=== PATIENT | male | born 2000 | race Caucasian/White ===

== ENCOUNTER 2020-08-29 17:42 | Observation (INO) | payer SELFPAY ==
[~2020-08-29 17:42] MED LIST: Dexamethasone 20 MG/5 ML VIAL ONE; Glycopyrrolate 0.2 MG/ML 5 ML SYRINGE ONE; Lidocaine 1% PF 5 ML VIAL ONE; Ondansetron PF 4 MG/2 ML Vial ONE; PHENYLEPHRINE-NS 100 MCG/ML 10 ML SYRINGE ONE; PROPOFOL 200 MG/20 ML VIAL ONE; Rocuronium Bromide 10 MG/ML (10ML VIAL) ONE
[2020-08-29] MEDS ORDERED: Boostrix 0.5 ML (Tdap) VIAL ONE (17:49)
[2020-08-29] MEDS ORDERED: Fentanyl 100 MCG/2 ML VIAL ONE ×3 (17:51→20:00)
[2020-08-29 18:19] LABS: #Basophils 0.1 thou/uL (0.0-0.2); #Eosinphils 0.1 thou/uL (0.0-0.7); #Monocytes 1.1 thou/uL (0.11-0.59); #Neutrophils 10.6 thou/uL (1.40-6.50); %Basophils 0.5 % (0.0-1.0); %Eosinophils 0.5 % (0.0-10.0); %Lymphocytes 14.3 % (21.0-51.0); %Monocytes 7.9 % (0.0-10.0); %Neutrophils 76.9 % (42.0-75.0); Hemoglobin 15.2 g/dL (14.0-18.0); Mean Corpuscular HGB CONC 34.1 g/dL (32.0-36.0); Mean Corpuscular Hemoglobin 30.5 pg (27.0-31.0); Mean Corpuscular Volume 89.4 fL (78.0-98.0); Platelet Count 217 thou/uL (130-400); RBC Distribution Width 11.5 % (11.5-14.5); Red Blood Cell (RBC) Count 4.98 mill/uL (4.70-6.10); White Blood Cell (WBC) Count 13.8 thou/uL (4.8-10.8)
[2020-08-29 18:25] LABS: INR-International Normal Ratio 1.1; PTT 25.3 sec (22.9-36.1); Prothrombin Time 14.2 sec (12.0-14.7)
--- NOTE | 2020-08-29 18:26 | RAD ---
2 views left wrist: 08/29/2020 COMPARISON: None HISTORY: Laceration, trauma, pain FINDINGS: No fracture or dislocation. No radiopaque foreign body or subcutaneous gas. IMPRESSION: No acute findings.
[2020-08-29 18:35] LABS: ALT (SGPT) 17 U/L (8-55); AST (SGOT) 20 U/L (5-34); Albumin 3.8 g/dL (3.5-5.0); Alkaline Phosphatase 126 U/L (40-110); Anion Gap 14 mmol/L (10-20); BUN (Urea Nitrogen) 12 mg/dL (8.9-20.6); Bilirubin, Total 0.5 mg/dL (0.2-1.2); Calc. Creatinine Clearance 0 mL/min (70-130); Calcium 8.4 mg/dL (7.8-10.44); Carbon Dioxide 21 mmol/L (22-29); Chloride 107 mmol/L (98-107); Globulin 2.8 g/dL (2.4-3.5); Glucose 103 mg/dL (70-105); Potassium 3.6 mmol/L (3.5-5.1); Protein, Total 6.6 g/dL (6.0-8.3); Sodium 138 mmol/L (136-145)
[2020-08-29] MEDS ORDERED: Lidocaine 2% PF 5 ML VIAL ONE (19:27)
[2020-08-29] MEDS ORDERED: Bacitracin Zinc Ointment 30 gm TUBE ONE (19:27)
[2020-08-29] MEDS ORDERED: Hetastarch 6% 500 ML 500 ML ONE (19:27)
[2020-08-29] MEDS ORDERED: Betamet Acet/Betamet Na Ph 30 MG/5 ML VIAL ONE (19:27)
[2020-08-29] MEDS ORDERED: Bupivacaine PF 0.5% 30 ML VIAL ONE (19:27)
[2020-08-29] MEDS ORDERED: Heparin 25,000 units/D5W 500 ML ONE (19:28)
[2020-08-29] MEDS ORDERED: Sodium Chloride 0.9% 30 ML ONE (19:32)
[2020-08-29] MEDS ORDERED: Milk Of Magnesia 30 ML UDCUP PO PRN (19:57)
[2020-08-29] MEDS ORDERED: Morphine 4 MG/ML VIAL SLOW IVP PRN (19:57)
[2020-08-29] MEDS ORDERED: traMADol HCl 50 MG TAB PO PRN (19:57)
[2020-08-29] MEDS ORDERED: Promethazine HCl 25 MG/ML VIAL IM PRN ×2 (19:57→23:13)
[2020-08-29] MEDS ORDERED: Acetaminophen 325 MG TAB PO PRN (19:57)
[2020-08-29] MEDS ORDERED: Ondansetron PF 4 MG/2 ML Vial SLOW IVP PRN (19:57)
[2020-08-29] MEDS ORDERED: Meperidine HCl/PF 25 MG/ML VIAL IM PRN (20:00)
[2020-08-29] MEDS ORDERED: TETANUS AND DIPHTHERIA TOX/PF 0.5 ML DISP.SYRIN IM SCH (20:00)
[2020-08-29] MEDS ORDERED: Midazolam HCl 2 mg/2 ml Vial ONE ×2 (20:00→22:57)
[2020-08-29] MEDS ORDERED: HYDROmorphone 0.5 MG/0.5 ML SYRINGE ONE (20:01)
[2020-08-29] MEDS ORDERED: Lidocaine 2% Jelly 5 ML TUBE ONE (20:01)
[2020-08-29 20:33] LABS: SARS-CoV-2 NAA Rapid Test Not Detected (NotDetected)
[2020-08-29] MEDS ORDERED: Vancomycin 1 GM in Premix Bag 1 BAG IVPB SCH (21:00)
[2020-08-29] MEDS ORDERED: SUGAMMADEX SODIUM 200 MG/2 ML VIAL ONE (22:59)
[2020-08-29] MEDS ORDERED: Promethazine HCl 25 MG/ML VIAL SLOW IVP PRN (23:13)
[2020-08-29] MEDS ORDERED: Meperidine HCl/PF 25 MG/ML VIAL SLOW IVP PRN ×2 (23:13)
[2020-08-29] MEDS ORDERED: Ketorolac Tromethamine 30 MG/ML VIAL IVP PRN (23:13)
[2020-08-29] MEDS ORDERED: Ondansetron HCl/PF 4 MG/2 ML Vial IVP PRN (23:13)
[2020-08-29] MEDS ORDERED: HYDROmorphone 2 MG/ML VIAL SLOW IVP PRN (23:13)
[2020-08-30 00:55] VITALS: BMI 32.8
[2020-08-30] MEDS: HYDROcodone/Acetaminophen 5/325 mg Tablet PO PRN ×2 (03:43→09:02)
[2020-08-30] MEDS: Vancomycin 1.5 GRAM/300 ML BAG 1.5 GM in Premix Bag 1 BAG IVPB SCH ×2 (04:49→13:57)
[2020-08-30] MEDS ORDERED: Hetastarch 6% 500 ML 500 ML IVPB SCH (05:00)
[2020-08-30] MEDS: Aspirin 81 mg Enteric Coated Tablet PO SCH ×2 (05:03→09:00)
[2020-08-30 06:28] LABS: INR-International Normal Ratio 1.1; Prothrombin Time 14.8 sec (12.0-14.7)
[2020-08-30] MEDS ORDERED: Sodium Chloride 0.9% 10 ML ONE (13:37)
--- NOTE | 2020-08-30 15:46 | OP ---
DATE OF PROCEDURE: 08/29/2020 PREOPERATIVE DIAGNOSES: 1. Left ulnar artery laceration with nerve neuropraxia, distal forearm just before it enters the Guyon canal. 2. Left distal forearm 5 cm wound; longitudinal, oblique. FINDINGS: 1. The ulnar artery had a 1 cm long laceration that was oblique in nature at almost a 45-degree angle to the horizontal, required complex repair techniques. 2. The ulnar nerve showed no sheath injury and it was intact grossly as a tube consistent with his normal two-point discrimination history. PROCEDURES PERFORMED: 1. Debridement of wound. Debridement techniques as follows: Tenotomy scissors, [place] blade, Adson's, and 3 L Pulsavac irrigation with depth of debridement down to and the fascia, but not including bone and joint and with excisional technique to include excision of hematoma. 2. 5 cm wound closure, multiple layer technique. 3. Microscopic neuroplasty ulnar nerve at the wrist. 4. Ulna artery 1.0 cm long oblique laceration by microscopic techniques as well. ESTIMATED BLOOD LOSS: 150 mL. TOURNIQUET TIME: 42 minutes. INDICATIONS FOR PROCEDURE: The patient sustained a laceration when a sharp piece of glass cut him in a large somewhat vertical tear. He had pulsatile bleeding in the emergency room, but on exam, all flexor tendons seem to be intact including to the thumb, FDP, and FDS as well as two-point discrimination was excellent on both sides of all digits. DESCRIPTION OF PROCEDURE: After successful general endotracheal anesthesia, the limb was prepped and draped. We then outlined incision to extend 5 cm, almost straight longitudinal, slightly vertical where you could visibly see the distal arterial laceration at the center of the wound. We exsanguinated the limb, inflated the tourniquet to 250 mmHg pressure. He received 20 mL of 0.5% Marcaine riki-incisional block. We extended the incision using loupe magnification 2 cm distal, all the way to the past fusiform and 2.5 cm proximal. We carried through skin and subcutaneous tissue, and we performed an ulnar nerve neuroplasty from the center of the wound distal and proximal to include crossing into the proximal half of Guyon canal. Here, we could see the ulnar nerve was not cut, but we could clearly see the laceration of the ulnar artery that was approximately 1 cm obliquely cut about a 45-degree angle. We then finished the neuroplasty under microscopic techniques, but before we got to the microscope, we finished debridement described above and irrigated with 3 L of normal saline and Pulsavac pressure. This made visualization of the artery easily under microscope. The microscope was on the field and magnification was appropriately achieved, we were able to see that the flap tear on the proximal end had some jagged edges and we resected 1 mm circumferentially and removed tissue until we placed a clamp, 3A, on both areas of this resected area under microscope, finished the resection under microscope of any jagged edges and then prepared the suture. We had to perform a back wall first technique with 8-0 Nurolon. After performing half the sutures with 8-0, we switched to 9-0 for any gap formation. We had to release the tourniquet to obtain pulsatile flow and back up. With the clamps in place, we were able to effect the repair without leakage. There was a branch of the ulnar artery that was lacerated and we placed a clip on this. We then obtained hemostasis and actually had flow, we confirmed this by flattening technique on both end of repair. There was no leak. We then gave a bolus of 7000 heparin, 100 mL of Hespan, and then began a 50 mL Hespan drip. The patient then had the hemostasis obtained and confirmed, closed the wound with interrupted 4-0 nylon subcutaneous pattern and 4-0 nylon epidermal mattress pattern for skin closure. Bulky dressing was applied with the wrist at 30 degrees of flexion and MP joints at 70 degrees of flexion. DIP joints were free. The digits were pink. Job ID: [id number]
[2020-08-30 17:52] VITALS: BP 116/58; TEMP 98.7
--- NOTE | 2020-09-10 06:22 | PQF ---
[facility] POST DISCHARGE CLINICAL DOCUMENTATION IMPROVEMENT CLARIFICATION FORM Todays Date: 09/08/20 Patients Name RYLEY QUIÑONES II Admit Date 08/29/20 Disch Date 08/30/20 Stock Or Delivery Clerk Name Genaro Campbell Email: [email or web address] Cell: [phone] To be completed by Stock Or Delivery Clerk: Present Clinical Indicators - Signs / Symptoms Results and Location in Medical Record [ ] Documentation of: [ ] [ ] Documentation of: [ ] [ ] Documentation of: [ ] [ ] Documentation of: [ ] [ ] Risks [ ] [ ] [ ] Treatment [ ] Left distal forearm laceration Query for area (sq cm) of debridement [ ] [ ] To be completed by Physician: JENNY IRWIN The documentation in this patients record requires clarification to ensure coding compliance and accuracy. Check the appropriate box and include in your discharge summary. [ ] [ ] [ ] [ ] Please check this box if this does not apply to this patient [ ] Unable to determine [ ] Other diagnosis: Review the following information and exercise your independent professional judgment in responding to the clarification. Based upon the clinical findings, risk factors, and treatment, please clarify if you are treating one of the above probable or suspected diagnoses. Physician Signature: Date Time MTDD
== END 2020-08-30 19:20 | disposition home or self-care (01) ==
LOC: ERS 17:42 → 3SE 19:39 → SDC/OP 19:40 → 3SE 20:00
PROVIDERS: ADMIT Orthopaedic Surgery Hand Surgery; ATTEND Orthopaedic Surgery Hand Surgery
PROC: 03QA0ZZ Repair Left Ulnar Artery, Open Approach (ICD-10-PCS; principal; 2020-08-29)
PROC: 01N40ZZ Release Ulnar Nerve, Open Approach (ICD-10-PCS; 2020-08-29)
DX: S55.012A Laceration of ulnar artery at forearm level, left arm, initial encounter (principal); S54.02XA Injury of ulnar nerve at forearm level, left arm, initial encounter; S51.812A Laceration without foreign body of left forearm, initial encounter; F12.10 Cannabis abuse, uncomplicated; F17.210 Nicotine dependence, cigarettes, uncomplicated; Z20.828 Contact with and (suspected) exposure to other viral communicable diseases; W25.XXXA Contact with sharp glass, initial encounter; Y99.0 Civilian activity done for income or pay
CPT/HCPCS: 36415; 80053; 83605; 85025; 85610; 85730; 86850; 86900; 86901; 90471; 90715; 96366; 96367; 96374; 96375; 96376; G0378; J0690; J0702; J1100; J1170; J1644; J2001; J2250; J2405; J2704; J3010; J3370; J3490; S0020; U0002